=== PATIENT | female | born 1990 | race Caucasian/White ===

== ENCOUNTER 2021-12-20 20:14 | Emergency (ER) | payer SELFPAY ==
[~2021-12-20] VITALS: Ht 157.5 cm; Wt 47.6 kg
[2021-12-20 20:17] VITALS: BP_SYST 150
[2021-12-20] MEDS ORDERED: KETOROLAC TROMETHAMINE 15 MG VIAL IVP ONE (20:30)
[2021-12-20] MEDS ORDERED: DIPHENHYDRAMINE INJ 50 MG/ML VIAL IVP ONE (20:30)
[2021-12-20] MEDS ORDERED: PROCHLORPERAZINE EDISYLATE 10 MG/2 ML VIAL IVP ONE (20:30)
--- NOTE | 2021-12-20 20:45 | NUR ---
Patient to ER bed 6 to gown for evaluation. Side rails up. Report given to Giselle CRENSHAW(reg).
--- NOTE | 2021-12-20 20:50 | NUR ---
ER at bedside examining patient.
[2021-12-20] MEDS ORDERED: BUTA1CAP43 PO (20:59)
--- NOTE | 2021-12-20 22:40 | NUR ---
Patient given written and verbal discharge instructions and verbalizes understanding. ER MD discussed with patient the results and treatment provided. Patient in stable condition. ID arm band removed. IV catheter removed intact and dressing applied, no active bleeding. Rx of FIORICET 50 given. Patient educated on pain management and to follow up with PMD. Pain Scale 0/10. Opportunity for questions provided and answered. Medication side effect fact sheet provided.
[2021-12-20 22:43] VITALS: BP_SYST 115
== END 2021-12-20 22:43 | disposition home or self-care (01) ==
LOC: SED 20:14
DX: G43.909 Migraine, unspecified, not intractable, without status migrainosus (principal); Z79.899 Other long term (current) drug therapy
CPT/HCPCS: 96374; 96375; 99284; J0780; J1200; J1885